=== PATIENT | male | born 1955 | race Caucasian/White ===

== ENCOUNTER 2021-02-15 18:58 | Emergency (ER) | payer MEDICARE, BC ==
[2021-02-15 20:59] LABS: Anion Gap 16 mmol/L (10-20); BUN (Urea Nitrogen) 22 mg/dL (8.4-25.7); Calc. Creatinine Clearance 0 mL/min (70-130); Calcium 9.2 mg/dL (7.8-10.44); Carbon Dioxide 18 mmol/L (23-31); Chloride 107 mmol/L (98-107); Glucose 143 mg/dL (80-115); Sodium 137 mmol/L (136-145)
== END 2021-02-15 21:36 | disposition home or self-care (01) ==
LOC: ERS 18:58
DX: E11.65 Type 2 diabetes mellitus with hyperglycemia (principal); I10 Essential (primary) hypertension; E78.00 Pure hypercholesterolemia, unspecified; Z79.899 Other long term (current) drug therapy
CPT/HCPCS: 36415; 36416; 99285

== ENCOUNTER 2024-12-03 12:02 | Emergency (ER) | payer MEDICARE, BC | END 2024-12-03 13:20 | disposition home or self-care (01) | LOC: ERS 12:02 | DX: T78.40XA Allergy, unspecified, initial encounter (principal); E11.9 Type 2 diabetes mellitus without complications; I10 Essential (primary) hypertension | CPT/HCPCS: 99282 ==